=== PATIENT | male | born 2000 | race Caucasian/White ===

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

== ENCOUNTER 2020-11-07 16:17 | Emergency (ER) | payer MEDICAID ==
[~2020-11-07] VITALS: Ht 157.5 cm; Wt 61.2 kg
--- NOTE | 2020-11-07 16:20 | NUR ---
Patient triaged and placed in waiting room. VSS and patient appears in no acute distress at this time. Accompanied by mother, awaiting available bed, and MD notified of need for MSE.
--- NOTE | 2020-11-07 16:22 | NUR ---
Pt brought by self, A&Ox4, pt presents to ER with bugbite on R upper leg, skin pink and warm, cap refill<3, VSS, pt afebrile, will cont to monitor.
[2020-11-07 16:23] VITALS: BP_SYST 135
--- NOTE | 2020-11-07 16:28 | NUR ---
Dr Henderson evaluating patient in the tent.
[2020-11-07] MEDS ORDERED: HYDROCORTISONE 1%, 28.35 GM TOPICAL CREAM TP PRN (16:45)
[2020-11-07] MEDS ORDERED: cephALEXin 500 MG CAPSULE PO ONE (16:45)
[2020-11-07 17:10] VITALS: BP_SYST 135
--- NOTE | 2020-11-07 17:11 | NUR ---
Patient given written and verbal discharge instructions and verbalizes understanding. ER MD discussed with patient the results and treatment provided. Patient in stable condition. ID arm band removed. Rx of Benadryl and Cephalexin given. Patient educated on pain management and to follow up with PMD. Pain Scale 2/10 tolerable for patient. Opportunity for questions provided and answered. Medication side effect fact sheet provided.
== END 2020-11-07 17:10 | disposition home or self-care (01) ==
LOC: SED 16:17
DX: S70.361A Insect bite (nonvenomous), right thigh, initial encounter (principal); L03.115 Cellulitis of right lower limb; W57.XXXA Bitten or stung by nonvenomous insect and other nonvenomous arthropods, initial encounter; Y93.89 Activity, other specified; Y92.89 Other specified places as the place of occurrence of the external cause; Y99.8 Other external cause status
CPT/HCPCS: 99283